=== PATIENT | male | born 1980 | race Caucasian/White ===

== ENCOUNTER 2018-04-16 06:13 | Day surgery (SDC) | payer OTHER ==
[~2018-04-16] VITALS: Ht 172.7 cm; Wt 84.0 kg
[~2018-04-16 06:13] MED LIST: IBUP800
[2018-04-16] MEDS ORDERED: ASPI325 PO (06:38)
== END 2018-04-16 22:43 | disposition home or self-care (01) ==
LOC: MHTC 06:13
PROC: B246ZZ4 Ultrasonography of Right and Left Heart, Transesophageal (ICD-10-PCS; principal; 2018-04-16)
DX: D15.1 Benign neoplasm of heart (principal)
CPT/HCPCS: 93312; 93325; 99152; 99153; J2250; J3010; J7040